=== PATIENT | male | born 1960 | race Caucasian/White ===

== ENCOUNTER → 2018-05-09 | Outpatient (CLI) | payer SELFPAY ==
[2018-05-09 16:18] LABS: Vitamin D 25 Hydroxy 44.6 ng/mL (30.0-100.0)
[2018-05-09 17:23] LABS: Hemoglobin A1C 5.4 % (4.0-6.0)
== END ==
LOC: LABWHC1 07:41
PROVIDERS: ATTEND Internal Medicine Cardiovascular Disease
DX: I25.10 Atherosclerotic heart disease of native coronary artery without angina pectoris (principal); E78.2 Mixed hyperlipidemia; E66.01 Morbid (severe) obesity due to excess calories; E88.81 Metabolic syndrome and other insulin resistance; R07.9 Chest pain, unspecified
CPT/HCPCS: 36415; 82306; 83036; 83090; 83695; 83704; 86140

== ENCOUNTER → 2018-05-12 | Outpatient (CLI) | payer SELFPAY | END | disposition home or self-care (01) | LOC: LABWHC1 08:34 | PROVIDERS: ATTEND Internal Medicine Cardiovascular Disease | DX: I25.10 Atherosclerotic heart disease of native coronary artery without angina pectoris (principal); E66.01 Morbid (severe) obesity due to excess calories; E78.49 Other hyperlipidemia; E88.81 Metabolic syndrome and other insulin resistance; R07.9 Chest pain, unspecified | CPT/HCPCS: 36415; 83704 ==

== ENCOUNTER → 2020-09-04 | Outpatient (CLI) | payer OTHER ==
--- NOTE | 2020-09-04 11:40 | FL ---
ESOPHOGRAM. HISTORY: Dysphagia Esophagram was performed per the air contrast technique. The patient swallowed barium and effervesce nt crystals without difficulty or delay. There is a distal esophageal apple core mass resulting in luminal narrowing and proximal dilatation o f the esophagus. The findings are felt to reflect malignancy until proven otherwise. Direct visualiza tion is recommended. There is a reducible sliding type hiatal hernia noted. Subsequently single contr ast cervical esophagram was performed which fails demonstrate evidence for aspiration penetration or additional mass. IMPRESSION: 1. Distal esophageal apple core mass resulting in luminal narrowing as noted above. The findings are felt to reflect malignancy until proven otherwise. Direct visualization is recommended. A [place] critical message alert has been initiated for Sergei Dickey MD via the [email or web address] Critical Results System on 09/04/2020 11:37 AM. This message alert has been sent to Sergei Dickey MD via the preferences provided by the clinician for the receipt of Radiology Critical Findings. Message ID [id number].
== END | disposition home or self-care (01) ==
LOC: RADUSWWP 10:50
PROVIDERS: ATTEND Otolaryngology
DX: K22.2 Esophageal obstruction (principal)
CPT/HCPCS: 74220

== ENCOUNTER 2020-09-16 10:22 | Day surgery (SDC) | payer OTHER ==
[2020-09-11 16:12] VITALS: BMI 29.8
[~2020-09-16 10:22] MED LIST: LACTATED RINGERS 1,000 ML IV SCH; LIDOCAINE 1% (10MG/ML) FOR IV START INTRADERMA PRN
[2020-09-16 10:41] VITALS: TEMP 98
[2020-09-16] MEDS ORDERED: LACTATED RINGERS 1,000 ML IV ONE (10:47)
[2020-09-16] MEDS ORDERED: LIDOCAINE 1% INJ 10MG/ML (20 ML MDV) ONE (11:18)
[2020-09-16] MEDS ORDERED: PROPOFOL 10 MG/ML 20 ML VIAL IV ONE (11:18)
--- NOTE | 2020-09-16 11:38 | P.PCN ---
Date of Procedure: 09/16/20 Procedure(s) Performed: Preoperative Dx: Dysphagia, esophageal mass Postoperative Dx: Esophageal mass, long segment Chi's esophagus Procedure: Esophagoscopy with Bx Anesthesia: Sedation Endoscopist: Dr. Limon Specimens: Distal esophageal mass Endoscopic Procedure: The patient was on the endoscopy table in the left decubitus position. The Olympus gastroscope was inserted into the oropharynx and passed under direct visualization to the region of the distal esophagus. The patient had a circumferential mass that was lobulated. The lumen was narrow and I could not pass the scope beyond the mass. The mass was present at approximately 30 cm and extended at least 5 cm distal to that. Patient had Chi's esophagus extending up to 22 cm. Multiple biopsies of the mass took place. The proximal esophagus appeared normal. The patient was then taken to the recovery room in stable condition per anesthesia guidelines. Recommendations: Await biopsy results. Will order CT chest and pelvis. We'll make referral to oncology to discuss neoadjuvant therapy.
[2020-09-16 11:43] VITALS: RESP 16
[2020-09-16 13:02] VITALS: BP 167/91; PULSE 67
== END 2020-09-16 13:03 | disposition home or self-care (01) ==
LOC: ORWHC2ENDO 10:22
PROVIDERS: ATTEND Surgery
DX: K22.70 Barrett's esophagus without dysplasia (principal); K21.9 Gastro-esophageal reflux disease without esophagitis; Z95.5 Presence of coronary angioplasty implant and graft; Z98.890 Other specified postprocedural states; Z82.49 Family history of ischemic heart disease and other diseases of the circulatory system; Z83.52 Family history of ear disorders; I25.10 Atherosclerotic heart disease of native coronary artery without angina pectoris; Z97.2 Presence of dental prosthetic device (complete) (partial); Z87.891 Personal history of nicotine dependence; Z79.82 Long term (current) use of aspirin; Z79.899 Other long term (current) drug therapy
CPT/HCPCS: 88305; 88342; 43239; J2001; J2704; 43202